=== PATIENT | male | born 2000 | race Caucasian/White ===

== ENCOUNTER → 2023-07-25 12:41 | Outpatient (BNVA) | payer BC, SELFPAY | PROVIDERS: PCP Nurse Practitioner Family; Visit Provider Internal Medicine Rheumatology | DX: Z79.899 Other long term (current) drug therapy (principal); M19.90 Unspecified osteoarthritis, unspecified site; M45.6 Ankylosing spondylitis lumbar region; Z11.59 Encounter for screening for other viral diseases; Z11.1 Encounter for screening for respiratory tuberculosis; R76.8 Other specified abnormal immunological findings in serum | CPT/HCPCS: 36415; 72072; 72100; 72202; 73130; 73630; 80076; 82306; 82565; 85025; 85651; 86140; 86160; 86162; 86200; 86235; 86255; 86376; 86431; 86480; 86704; 86803; 86812; 87340 ==

== ENCOUNTER → 2024-01-16 11:22 | Outpatient (BNVA) | payer MEDICAID, SELFPAY | PROVIDERS: PCP Nurse Practitioner Family; Visit Provider Internal Medicine Rheumatology | DX: M13.80 Other specified arthritis, unspecified site (principal); M54.89 Other dorsalgia; I73.00 Raynaud's syndrome without gangrene; D49.7 Neoplasm of unspecified behavior of endocrine glands and other parts of nervous system; Z79.899 Other long term (current) drug therapy; Z71.85 Encounter for immunization safety counseling | CPT/HCPCS: 99214 ==